=== PATIENT | female | born 1935 | race Caucasian/White ===

== ENCOUNTER → 2021-03-07 10:42 | Outpatient (CLI) | payer MEDICARE, OTHER, SELFPAY ==
[2021-03-07 11:08] LABS: Adenovirus,PCR Not Detected (NotDetected); Bordetella Pertussis Not Detected (NotDetected); Chlamydophila Pneumoniae, PCR Not Detected (NotDetected); Coronavirus 229E Not Detected (NotDetected); Coronavirus NL63 Not Detected (NotDetected); Coronavirus OC43 Not Detected (NotDetected); Coronovirus HKU1,PCR Not Detected (NotDetected); Human Metapneumovirus Not Detected (NotDetected); Influenza A, PCR Not Detected (NotDetected); Influenza AH1, 2009 Not Detected (NotDetected); Influenza AH1, PCR Not Detected (NotDetected); Influenza AH3,PCR Not Detected (NotDetected); Influenza B, PCR Not Detected (NotDetected); Mycoplasma Pneumoniae, PCR Not Detected (NotDetected); Parainfluenza 1, PCR Not Detected (NotDetected); Parainfluenza 2, PCR Not Detected (NotDetected); Parainfluenza 3, PCR Not Detected (NotDetected); Parainfluenza 4, PCR Not Detected (NotDetected); Respiratory Syncytial Virus Not Detected (NotDetected)
[2021-03-07 14:39] LABS: Rhinovirus/Enterovirus Detected (NotDetected)
== END ==
PROVIDERS: Visit Provider Nurse Practitioner Family
DX: Z20.822 Contact with and (suspected) exposure to COVID-19 (principal); J44.1 Chronic obstructive pulmonary disease with (acute) exacerbation; R05.9 Cough, unspecified; B34.1 Enterovirus infection, unspecified
CPT/HCPCS: 87486; 87581; 87632; 87798

== ENCOUNTER 2021-04-13 09:05 | Emergency (ER) | payer MEDICARE, OTHER, SELFPAY ==
[2021-04-13 09:54] LABS: UTC Influenza A Antigen Negative (Negative); UTC Strep Screen (Rapid) Positive (Negative)
[2021-04-13 09:55] LABS: UTC Influenza B Antigen Negative (Negative)
[2021-04-13 09:56] VITALS: BP 145/55; PULSE 96; RESP 18; TEMP 37; O2SAT 98; BMI 22.8
--- NOTE | 2021-04-13 10:10 | HMH.EDUTC ---
[facility] [place] Disposition Clinical Impression: Strep throat Disposition: Home, Self-Care Condition on Discharge: Good Instructions: DI for Strep Throat, Strep Throat Additional Instructions: *Monitor Temp, Over the counter Motrin or Tylenol as directed/as needed Tylenol every 4 hours and Motrin every 6 hours (as long as your family doctor has told you that you can take it) for fever or pain. and straight to ER if unable to lower temp less than 101.0 after medication given *Warm salt water gargles may help to soothe the throat *Throat Lozenges *Warm fluids like tea with honey may help to soothe the throat *Sleep elevated *Humidifier/Vaporizer *If you did not take Penicillin shot or was unable to, start taking antibiotic immediately and make sure that you take it for the FULL length of time although you should start to feel better in 24-48 hours *change toothbrush and toothpaste 24-48 hours after starting to take antibiotics so you do not reinfect yourself Monitor Temp. Tylenol and/or Ibuprofen as needed. ER if fever is no less than 101 despite alternating Tylenol and Ibuprofen * Encourage fluids, water, Gatorade, powerade, pedialyte if infant/toddler/or child *Cold fluids, popsicles and ice cream may feel good on his throat Follow up IMMEDIATELY for new or worsening symptoms or no Noticeable improvement over the next 48-72 hours. 911 for difficulty breathing or swallowing Prescriptions: Cefdinir [Omnicef 300mg Capsule] 300 mg PO BID #20 cap Prescription Printed Referrals: Kathi Almanza APRN [Primary Care Provider] - As needed Time of Disposition: 10:20 Medical Decision Making - Evan Inquiry Pt receiving controlled substance: No Evan was queried for this patient: No Vital Signs: 04/13/21 09:56 Temperature 98.6 F Temperature Source Oral Pulse Rate [Right Radial] 96 H Respiratory Rate 18 Blood Pressure [Right Arm] 145/55 H Blood Pressure Mean [Right Arm] 85 Blood Pressure Source [Right Arm] Automatic Cuff Blood Pressure Position [Right Arm] Sitting 02 Sat by Pulse Oximetry 98 Oxygen Delivery Method Room Air - Lab Data Lab results reviewed: Yes: I reviewed the patient's lab results. Lab Results 04/13/21 09:43: Influenza Type A Ag Negative, Influenza Type B Ag Negative 04/13/21 09:43: Strep Scn Rapid Clinic Positive A [facility] [place] HPI - General Stated complaint: sore throat, cough, h/a Time Seen by Provider: 04/13/21 10:10 Mode of Arrival: Ambulatory Source of Information: Patient Limitations: No Limitations Description of Symptoms (Recalled from Triage Doc. by RN): pt stated that she has cough, sore throat, body aches, and feels weak. HEENT Symptoms (Recalled from RN notes): No Resp Symptoms (Recalled from RN notes): No Skin Symptoms (Recalled from RN notes): No MS Symptoms (Recalled from RN notes): No Functional Status (Recalled from RN notes): n/a - History of Present Illness Provider Complaint: Patient states that she has been having sore throat, cough, feeling achy and headache States that she feels like she did when she had strep throat so she came back in to get checked - Related Data Previous Rx's Medication Instructions Recorded Cefdinir [Omnicef 300mg Capsule] 300 mg PO BID #20 cap 04/13/21 Allergies Allergy/AdvReac Type Severity Reaction Status Date / Time NKDA Allergy Unknown Uncoded 04/13/21 10:02 - Worker's Comp Is this a Worker's Comp case?: No Is this an H Worker's Comp?: No Is this a [place] Worker's Comp?: No [facility] History - Hepatitis A Screen Drug use history?: No High risk sexual behaviors?: No History of sexually transmitted infection?: No Currently employed?: No Childcare worker?: No Do you have indoor plumbing?: Yes Do you have electricity?: Yes Attestation statement:: This patient has been screened for Hepatitis A risk factors. I have reviewed the patient's past medical history: Yes - Social History Alcohol Intake: never Occupational S
--- NOTE | 2021-04-13 10:30 | PC.NURSE ---
Spoke with pt about OTC cough medications
[2021-04-13 10:31] VITALS: BP 145/55; PULSE 96; RESP 19; TEMP 37; O2SAT 98
== END 2021-04-13 10:31 | disposition home or self-care (01) ==
PROVIDERS: Emergency Provider Nurse Practitioner; PCP Nurse Practitioner Family
DX: J02.0 Streptococcal pharyngitis (principal)
CPT/HCPCS: G0463; 87804; 87880; 99202

== ENCOUNTER 2023-05-04 20:22 | Inpatient (IN) | payer MEDICARE, OTHER, SELFPAY ==
[2023-05-04] VITALS (10 sets, daily range): BP systolic 140–191; BP diastolic 52–87; PULSE 71–107; RESP 11–25; TEMP 37.3; O2SAT 87–97; BMI 25.4
--- NOTE | 2023-05-04 20:50 | XR_ITS ---
PROCEDURE INFORMATION: Exam: XR Chest Exam date and time: 05/04/2023 8:56 PM Age: 87 years old Clinical indication: Shortness of breath; Additional info: SOA TECHNIQUE: Imaging protocol: Radiologic exam of the chest. Views: 1 view. COMPARISON: No relevant prior studies available. FINDINGS: Lungs: Unremarkable. No consolidation. Pleural spaces: Unremarkable. No pleural effusion. No pneumothorax. Heart/Mediastinum: Unremarkable. No cardiomegaly. Bones/joints: Unremarkable. IMPRESSION: No acute findings.
[2023-05-04 20:53] LABS: Coronavirus 19, PCR Not Detected (NotDetected); Influenza B, PCR Not Detected (NotDetected)
[2023-05-04 20:56] LABS: Basophils # 0.1 K/mm3 (0-0.2); Basophils % 1.4 % (0.1-2.0); Eosinophils # 0.2 K/mm3 (0.0-0.4); Eosinophils % 1.8 % (0.1-12.0); Hematocrit 40.1 % (37.0-47.0); Hemoglobin 12.7 g/dL (12.2-16.2); Lymphocytes # 0.8 K/mm3 (0.7-4.5); Lymphocytes % 8.9 % (10-50); Mean Corpuscular HGB Conc 31.8 g/dL (31.8-35.4); Mean Corpuscular Hemoglobin 31.6 pg (27.0-31.2); Mean Corpuscular Volume 99.4 fl (81-99); Monocytes # 0.6 K/mm3 (0.1-1.0); Monocytes % 6.6 % (1.7-9.3); Neutrophils # 7.7 K/mm3 (1.8-7.8); Neutrophils % 81.4 % (37.0-80.0); Platelet Count 343 K/mm3 (142-424); Red Blood Count 4.03 M/mm3 (4.20-5.40); Red Cell Distribution Width 13.4 % (11.5-17.5); White Blood Count 9.5 K/mm3 (4.8-10.8)
[2023-05-04 20:58] LABS: Chloride 102 mmol/L (98-107); Potassium 3.7 mmoL/L (3.5-5.1); Sodium 138 mmol/L (136-145)
[2023-05-04 21:00] LABS: Blood Urea Nitrogen 23 mg/dl (7-17); Creatinine Clearance Estimated 30 mL/min (50-200); Estimated Glomerular Filt Rate 36 ml/min (>60); GFR (African American) 43 ML/MIN (>60)
--- NOTE | 2023-05-04 21:00 | ECG_ITS ---
APPROVED REPORT Exam: Resting ECG HR:98 bpm ECG Measurements Heart Rate 98 AXES MO 219 P 91 QRSd 94 QRS 38 QT 369 T 258 QTc 424 Conclusion SINUS RHYTHM WITH FIRST DEGREE AV BLOCK WITH OCCASIONAL SUPRAVENTRICULAR PREMATURE COMPLEXES LEFT VENTRICULAR HYPERTROPHY AND ST-T CHANGE [VOLTAGE CRITERIA PLUS ST/T ABNORMALITY] POSSIBLE SEPTAL MYOCARDIAL INFARCTION , PROBABLY OLD [30 ms Q WAVE IN V1/V2] ABNORMAL ECG UNCONFIRMED REPORT Electronically signed by : Roly Crews MD 05/05/2023 09:02:34
[2023-05-04 21:01] LABS: Alanine Aminotransferase 30 U/L (12-78); Albumin Level 4.2 g/dl (3.5-5.0); Albumin/Globulin Ratio 1.1 (1.1-1.8); Alkaline Phosphatase 76 U/L (38-126); Anion Gap 14.7 mEq/L (5-15); Aspartate Amino Transferase 42 U/L (14-36); Bilirubin,Total 0.5 mg/dl (0.2-1.3); Calcium 8.9 mg/dl (8.4-10.2); Carbon Dioxide 25 mmol/L (22.0-30.0); Globulin 3.9 g/dL (1.3-3.2); Glucose 129 mg/dl (74-100); Total Protein,Serum 8.1 g/dl (6.3-8.2)
[2023-05-04 21:02] LABS: Lactic Acid 2.7 mmol/L (0.7-2.1)
[2023-05-04 21:06] LABS: VBG HCO3 22.6 mmol/L (23-30); VBG Oxygen Saturation 80.9 % (50-70); VBG PCO2 36.6 mmol/L (35-51); VBG PH 7.41 mmol/L (7.31-7.41); VBG PO2 46.1 mmol/L (28-40); VBG Total CO2 23.8 mmol/L (23-27)
[2023-05-04 21:13] LABS: Troponin I 0.02 ng/ml (0.00-0.034)
[2023-05-04] MEDS: IPRATROPIUM/ALBUTEROL 3 ML NEB IH (21:13)
--- NOTE | 2023-05-04 21:13 | HMH.EDGENADL ---
Discharge Plan Disposition Patient Disposition: Home, Self-Care Chief Complaint: Shortness of Breath/Dyspnea Clinical Impressions Clinical Impression: Influenza A Respiratory failure with hypoxia Qualifiers: Chronicity: acute Qualified Code(s): J96.01 - Acute respiratory failure with hypoxia Discharge ED Provider: Angel Stanford General Adult HPI General Chief complaint: Shortness of Breath/Dyspnea Stated complaint: trouble breathing and cough Time Seen by Provider: 05/04/23 20:44 Mode of Arrival: Ambulatory Source of Information: Patient Limitations: No Limitations Description of Symptoms (Recalled from ER Triage Doc. by RN): 87 year old female with complaints of shortness of breath that has progressivly gotten worse over the last two nights with increased cough-non productive. Denies any fevers. No home oxygen use. History of Present Illness HPI narrative: 87-year-old female with reported history of borderline COPD presents with worsening cough and shortness of breath over the last couple of days. Son reports that she was very short of breath at home. He brought her in. On arrival her oxygen was in the 80s. She reports no fevers at home. Reports cough is productive of phlegm. She reports others have been sick around. She reports nasal congestion. Related Data Home Medications Medication Instructions Recorded Confirmed aspirin 81 mg tablet 81 mg PO DAILY 05/04/23 05/04/23 atenolol 25 mg tablet 25 mg PO DAILY 05/04/23 05/04/23 atorvastatin 10 mg tablet 10 mg PO DAILY 05/04/23 05/04/23 escitalopram oxalate 5 mg tablet 5 mg PO DAILY 05/04/23 05/04/23 lisinopril 10 mg tablet 10 mg PO BID 05/04/23 05/04/23 Allergies Allergy/AdvReac Type Severity Reaction Status Date / Time NKDA Allergy Unknown Uncoded 04/13/21 10:02 [facility] Disclaimer: The information contained in this section may have been updated after the patient was seen, as this information can be updated by other users. Social History Smoking Status: Former smoker alcohol intake: never current occupational status: retired Travel in the last 8 weeks: None ROS Obtained: Yes All systems reviewed & no additional complaints except as documented Physical Exam General General appearance: alert and in no apparent distress Head Head exam: atraumatic and normocephalic Eye Eye exam: Present normal appearance, PERRL and EOMI ENT ENT exam: Present normal oropharynx and normal external ear exam Neck Neck exam: Present normal inspection and full ROM Chest Chest inspection: Present normal inspection and symmetric chest wall rise; Absent tenderness Respiratory Respiratory exam: Present respiratory distress (Tachypnea and accessory muscle use noted) and wheezes Cardiovascular Cardiovascular exam: Present normal rhythm and tachycardia Abdominal Exam Abdominal exam: Present soft; Absent distention, tenderness or guarding Extremities Exam Extremities exam: Present normal inspection; Absent edema or joint swelling Back Exam Back exam: Present normal inspection; Absent tenderness Neurological Exam Neurological exam: Present alert and oriented X3; Absent motor sensory deficit Psychiatric Psychiatric exam: Present normal affect and normal mood Skin Skin exam: Present warm, dry and normal color Lymphatic Lymphatic Findings: no adenopathy Medical Decision Making Medical Records Medical records reviewed: Yes I reviewed the patient's medical records. Evan Inquiry Pt receiving controlled substance: No Evan was queried for this patient: No Vital Signs: 05/04/23 20:37 05/04/23 20:40 05/04/23 20:37 Temperature 99.1 F Temperature Source Oral Pulse Rate 93 H Pulse Rate [Left Radial] 107 H Respiratory Rate 22 13 Blood Pressure 151/87 H Blood Pressure [Right Arm] 191/80 H Blood Pressure Mean [Right Arm] 117 02 Sat by Pulse Oximetry 88 L 95 97 Oxygen Delivery Method Room Air Nasal Cannula Nasal Cannula Oxygen Flow Rate (LPM) 2 2 05/04/23 21:16 05/04/23 21:00 05/04/23 21:30 Temperature Temperature Source Pulse Rate 93 H 88 71 Pulse Rate [Left Radial] Respiratory Rate 15 11 L Blood Pressure 140/73 151/80 H Blood Pressure [Right Arm] Blood Pressure Mean [Right Arm] 02 Sat by Pulse Oximetry 96 95 Oxygen Delivery Method Room Air Room Air Oxygen Flow Rate (LPM) 05/04/23 22:00 05/04/23 23:22 05/04/23 23:22 Temperature Temperature Source Pulse Rate 97 H Pulse Rate [Left Radial] Respiratory Rate 13 Blood Pressure 154/52 H Blood Pressure [Right Arm] Blood Pressure Mean [Right Arm] 02 Sat by Pulse Oximetry 95 87 L 95 Oxygen Delivery Method Room Air Room Air Nasal Cannula Oxygen Flow Rate (LPM) 2 05/04/23 22:30 05/04/23 23:00 05/04/23 23:30 Temperature Temperature Source Pulse Rate 89 95 H Pulse Rate [Left Radial] Respiratory Rate 20 25 H 16 Blood Pressure 157/63 H 163/65 H 154/67 H Blood Pressure [Right Arm] Blood Pressure Mean [Right Arm] 02 Sat by Pulse Oximetry 93 L 94 L Oxygen Delivery Method Oxygen Flow Rate (LPM) Lab Data Lab results reviewed: Yes I reviewed the patient's lab results. Lab Results 05/04/23 20:35: SARS-CoV-2 (PCR) Not detected, Influenza A Untype (PCR) Detected A, Influenza Type B (PCR) Not detected 05/04/23 20:37: WBC 9.5, RBC 4.03 L, Hgb 12.7, Hct 40.1, MCV 99.4 H, MCH 31.6 H, MCHC 31.8, RDW 13.4, Plt Count 343, MPV 8.0, Neut % (Auto) 81.4 H, Lymph % (Auto) 8.9 L, [place] % (Auto) 6.6, Eos % (Auto) 1.8, Baso % (Auto) 1.4, Neut # (Auto) 7.7, Lymph # (Auto) 0.8, [place] # (Auto) 0.6, Eos # (Auto) 0.2, Baso # (Auto) 0.1, Sodium 138, Potassium 3.7, Chloride 102, Carbon Dioxide 25, Anion Gap 14.7, BUN 23 H, Creatinine 1.40 H, Estimated Creat Clear 30, Estimated GFR 36 L, Est GFR ( Amer) 43 L, Glucose 129 H, Lactate 2.7 H, Calcium 8.9, Total Bilirubin 0.5, AST 42 H, ALT 30, Alkaline Phosphatase 76, Troponin I 0.02, Total Protein 8.1, Albumin 4.2, Globulin 3.9 H, Albumin/Globulin Ratio 1.1 05/04/23 20:56: VBG pH 7.41, VBG pCO2 36.6, VBG pO2 46.1 H, VBG HCO3 22.6 L, VBG Total CO2 23.8, VBG O2 Saturation 80.9 H, VBG Base Excess -2.0 05/04/23 20:37 05/04/23 20:37 Orders (Tests/Meds): ED MEDICATIONS Generic Name Dose Route Start Last Admin Trade Name Freq PRN Reason Stop Dose Admin Acetaminophen 650 mg 05/04/23 23:20 Acetaminophen 325mg Tab PO 06/03/23 23:19 Q4HP PRN Fever or Mild Pain (1-3) Albuterol/Ipratropium 3 ml 05/05/23 00:00 Ipratropium/Albuterol 3 Ml [facility] 06/04/23 00:00 Q6RT ESTEBAN Enoxaparin Sodium 40 mg 05/05/23 09:00 Enoxaparin 40mg/0.4ml Syringe SQ 06/04/23 08:59 DAILY ESTEBAN Sodium Chloride 1,000 mls @ 50 mls/hr 05/04/23 23:30 Sod Chlor 0.9% 1000ml Bag IV 06/03/23 23:29 .Q20H ESTEBAN Morphine Sulfate 2 mg 05/04/23 23:20 Morphine 2mg/Ml Syringe IV 06/03/23 23:19 Q2HP PRN Severe Pain (7-10) Nicotine 21 mg 05/04/23 23:20 Nicotine 21mg/24hr Patch TD 06/03/23 23:19 DAILYP PRN Nicotine Cravings Ondansetron HCl 4 mg 05/04/23 23:20 Ondansetron 4mg/2ml Vial IV 06/03/23 23:19 Q8HP PRN Nausea Pantoprazole Sodium 40 mg 05/05/23 09:00 Pantoprazole 40mg Tablet PO 06/04/23 08:59 DAILY ESTEBAN Discontinued Medications Generic Name Dose Route Start Last Admin Trade Name Freq PRN Reason Stop Dose Admin Albuterol/Ipratropium 3 ml 05/04/23 20:48 05/04/23 21:13 Ipratropium/Albuterol 3 Ml [facility] 05/04/23 20:49 3 ml ONCE ONE Administration Oseltamivir Phosphate 75 mg 05/04/23 23:17 05/04/23 23:20 Oseltamivir 75mg Capsule PO 05/04/23 23:18 75 mg BID ONE Administration ORDERS Category Date Time Status Chest XR -- portable [XR chest portable] Stat Exams 05/04/23 20:50 Completed Complete Blood Count Auto Diff AMLAB Lab 05/05/23 06:00 Ordered Complete Blood Count Auto Diff Stat Lab 05/04/23 20:37 Completed Comprehensive Metabolic Panel AMLAB Lab 05/05/23 06:00 Ordered Comprehensive Metabolic Panel Stat Lab 05/04/23 20:37 Completed Lactic Acid Stat Lab 05/04/23 20:37 Completed Magnesium AMLAB Lab 05/05/23 06:00 Ordered Rapid PCR Covid and Flu A/B Stat Lab 05/04/23 20:35 Completed Troponin I Q3H Lab 05/04/23 23:50 Ordered Troponin I Q3H Lab 05/05/23 02:50 Ordered Troponin I Stat Lab 05/04/23 20:37 Completed VBG [Venous Blood Gas] Stat RT 05/04/23 20:56 Completed Medical Decision Narrative: 87-year-old female with history of borderline COPD presents with worsening shortness of breath, productive cough at home. History was obtained via conversation with patient, family. On arrival, patient is afebrile, tachycardic greater than 110, satting high 80s on room air., moving all extremities spontaneously. Full physical exam performed and significant for bilateral wheezing and increased work of breathing. Patient initially placed on 2 L nasal cannula with improvement in oxygenation. Differential includes but is not limited to COVID, flu, bacterial pneumonia, COPD exacerbation. Patient was given DuoNebs for symptomatic management and correction of underlying abnormalities. Workup initiated including CBC CMP troponin chest x-ray EKG and COVID flu swab.. Patient placed on manager cardiac cath. On re-evaluation, patient remains tachycardic on manager cardiac cath. Satting low 90s on room air after DuoNeb's. Laboratory workup independently interpreted by me and significant for elevated creatinine with at 1.4. Patient does not know what her baseline is and we do not have a known baseline. We called and found a creatinine of 0.9 from [facility] from 3 years ago. No significant leukocytosis, VBG nonactionable. Lactate elevated at 2.7. Initial troponin within normal limits. Influenza a positive on swabs. Imaging independently interpreted by me and significant for no focal opacity. See radiology read for full review of final results. EKG independently interpreted by me and significant for normal sinus rhythm, first-degree AV block noted, no significant ST changes, artifact throughout the EKG limits interpretation.. On reassessment, patient remains dyspneic and is given hypoxic, satting 87% on room air while at rest. Given patient history, exam and workup, patient's presentation most likely represents acute influenza infection with hypoxic respiratory failure and VADIM (baseline creatinine is unclear). interactive discussion had with patient/family who agreed to be admitted. Patient given oseltamivir. Interactive discussion was had with hospitalist on-call for admission. Procedures Risk/Benefits of Procedure(s) Were Explained: Yes Critical Care Critical Care Time Critical Care Time: No
[2023-05-04 21:16] LABS: Influenza A, PCR Detected (NotDetected)
[2023-05-04] MEDS: OSELTAMIVIR 75MG CAPSULE 75 MG PO (23:20)
--- NOTE | 2023-05-04 23:20 | PC.NURSE ---
on phone with hospitalist
--- NOTE | 2023-05-04 23:21 | PC.NURSE ---
notified house furnishings supervisor on admission
--- NOTE | 2023-05-04 23:22 | P.HP_ITS ---
History of Present Illness *Admission Date: 05/04/23 *Reason for visit:: SOB *History of present illness: This is a 87-year-old female with reported PMHx of borderline COPD , HTN, HLD, presented with worsening cough and shortness of breath over the last couple of days. Son reports that she was very short of breath at home. He brought her in. On arrival her oxygen was in the 80s. She reports no fevers at home. Reports cough is productive of phlegm. She reports others have been sick around. She reports nasal congestion. Admitted for treatment and management. [facility] Disclaimer: The information contained in this section may have been updated after the patient was seen, as this information can be updated by other users. Medical History (Updated 05/05/23 @ 06:38 by Zuhair Ac APRN) Asthma Depression Hyperlipidemia Hypertension Social History (Updated 05/05/23 @ 00:36 by Debi Shah RN) Smoking Status: Former smoker alcohol intake: never current occupational status: retired Travel in the last 8 weeks: None Review of Systems Review of Systems Review of systems:: pertinent systems reviewed and negative unless documented below Meds Home Medications and Allergies Home Medications Medication Instructions Recorded Confirmed Type atenolol 25 mg tablet 25 mg PO DAILY High Blood Pressure 05/04/23 05/05/23 History atorvastatin 10 mg tablet 10 mg PO DAILY Cholesterol 05/04/23 05/05/23 History escitalopram oxalate 5 mg tablet 5 mg PO DAILY Mood 05/04/23 05/05/23 History lisinopril 10 mg tablet 10 mg PO BID High Blood Pressure 05/04/23 05/05/23 History aspirin 81 mg tablet,delayed 81 mg PO DAILY Heart Health 05/05/23 05/05/23 History release New Prescriptions to Start Prescriptions: Allergies Allergy/AdvReac Type Severity Reaction Status Date / Time No Known Allergies Allergy Unverified 05/05/23 06:47 Exam Data for Last 24 hours Vital signs and Labs for Last 24 Hours: Temp Pulse Resp BP Pulse Ox O2 Del Method O2 Flow Rate 99.1 F 97 H 13 154/52 H 87 L Room Air 2 05/04/23 20:37 05/04/23 22:00 05/04/23 22:00 05/04/23 22:00 05/04/23 23:22 05/04/23 23:22 05/04/23 20:40 Laboratory Results - last 24 hr 05/04/23 20:35: SARS-CoV-2 (PCR) Not detected, Influenza A Untype (PCR) Detected A, Influenza Type B (PCR) Not detected 05/04/23 20:37: WBC 9.5, RBC 4.03 L, Hgb 12.7, Hct 40.1, MCV 99.4 H, MCH 31.6 H, MCHC 31.8, RDW 13.4, Plt Count 343, MPV 8.0, Neut % (Auto) 81.4 H, Lymph % (Auto) 8.9 L, [place] % (Auto) 6.6, Eos % (Auto) 1.8, Baso % (Auto) 1.4, Neut # (Auto) 7.7, Lymph # (Auto) 0.8, [place] # (Auto) 0.6, Eos # (Auto) 0.2, Baso # (Auto) 0.1, Sodium 138, Potassium 3.7, Chloride 102, Carbon Dioxide 25, Anion Gap 14.7, BUN 23 H, Creatinine 1.40 H, Estimated Creat Clear 30, Estimated GFR 36 L, Est GFR ( Amer) 43 L, Glucose 129 H, Lactate 2.7 H, Calcium 8.9, Total Bilirubin 0.5, AST 42 H, ALT 30, Alkaline Phosphatase 76, Troponin I 0.02, Total Protein 8.1, Albumin 4.2, Globulin 3.9 H, Albumin/Globulin Ratio 1.1 05/04/23 20:56: VBG pH 7.41, VBG pCO2 36.6, VBG pO2 46.1 H, VBG HCO3 22.6 L, VBG Total CO2 23.8, VBG O2 Saturation 80.9 H, VBG Base Excess -2.0 I & O for Last 24 hours: Intake & Output 05/01/23 05/02/23 05/03/23 05/04/23 23:59 23:59 23:59 23:59 Weight 65.317 kg Constitutional Constitutional: mild distress and cooperative *Routine HEENT Exam Head: Present normocephalic and atraumatic Eye: Present EOMI, PERRL and normal accommodation ENT: Present mucous membranes moist *Routine Neck Exam Neck: Present supple, full ROM and trachea midline *Routine Respiratory Exam Respiratory: Present decreased breath sounds, prolonged expiratory phase, wheezes, diminished air movement, able to speak in complete sentences and symmetric chest movement *Routine Cardiovascular Exam Cardiovascular: Present RRR, Normal S1, Normal S2 and tachycardia *Routine Abdominal Exam Abdominal: Present soft and normoactive bowel sounds; Absent organomegaly *Routine Rectal Exam Rectal:: deferred *Routine Genitalia Exam Genitalia:: deferred *Routine Extremities Exam Extremities: Present full ROM and pulses intact; Absent cyanosis, clubbing or edema *Routine Skin Exam Skin: Present intact, dry and warm *Routine Neurological Exam Neurological: Present alert, oriented X3, normal reflexes, moving all extremities and normal speech Routine Psychiatric Exam Psychiatric: Present normal thought process, cooperative and good judgment H&P: Result Imaging and Cardiology EKG: Status: image reviewed by me and Preliminary report Chest x-ray: Status: image reviewed by me, Preliminary report and final report Assessment and Plan *Assessment and plan (1) Respiratory failure with hypoxia: Status: Acute Qualifiers: Chronicity: acute Qualified Code(s): J96.01 - Acute respiratory failure with hypoxia Category: Medical Code(s): J96.91 - Respiratory failure, unspecified with hypoxia (2) Influenza A: Status: Acute Category: Medical Code(s): J10.1 - Influenza due to other identified influenza virus with other respiratory manifestations (3) Hypertension: Status: Acute Qualifiers: Hypertension type: unspecified Qualified Code(s): I10 - Essential (primary) hypertension Category: Medical Code(s): I10 - Essential (primary) hypertension (4) Hyperlipidemia: Status: Acute Qualifiers: Hyperlipidemia type: unspecified Qualified Code(s): E78.5 - Hyperlipidemia, unspecified Category: Medical Code(s): E78.5 - Hyperlipidemia, unspecified Plan 87-year-old female with reported PMHx of borderline COPD , HTN, HLD, presented with worsening cough and shortness of breath over the last couple of days. on arrival, patient presented hypoxic. In the high 80s. Was placed on oxygen. Underwent couple rounds of nebulized, with not complete resolution. Checks x- ray was done. Images reviewed. There is no focal opacity. Labs showed positive to influenza type A, elevated creatinine. The rest is unremarkable. The case with the ER provider for admission. Plan as follow: -Acute hypoxemia likely secondary to influenza A: Admit patient. Dispo MedSurg Monitor for O2 saturation. Currently on 3 L. Initially 6 L needed on arrival continue weaning off DuoNeb every 6h Started on Tamiflu Guaifenesin as needed for cough Monitor for sepsis and temperature per unit protocol Pulmonology consult. Patient does not have established diagnosis of COPD. History of asthma and former smoker. Might need pulmonary function test as an outpatient -Hypertension: Resume home meds lisinopril and atenolol -Hyperlipidemia on aspirin and statin Lovenox for DVT prophylaxis. Protonix for GI protection Full code Attending attestation Patient was seen and evaluated at the bedside myself, agree with IN FLIGHT TECHNICIAN note.
--- NOTE | 2023-05-04 23:22 | PC.NURSE ---
Acute admission to room 211 to service of the hospitalist with dx of flu A and hypoxia.
[2023-05-05] VITALS (10 sets, daily range): BP systolic 141–156; BP diastolic 70–79; PULSE 81–115; RESP 17–22; TEMP 36.7–37.3; O2SAT 91–100; BMI 26.3
--- NOTE | 2023-05-05 00:01 | PC.NURSE ---
Report given to LORETTA Carrera
[2023-05-05] MEDS: 0.9 % SODIUM CHLORIDE 1000ML 1,000 ML 50 ML IV (00:17)
--- NOTE | 2023-05-05 00:18 | PC.NURSE ---
Patient arrived to floor via wheelchair from ED at 00:15.
[2023-05-05 00:38] LABS: Troponin I 0.03 ng/ml (0.00-0.034)
[2023-05-05 00:52] LABS: Reflex Lactic Add Lactic Reflex
[2023-05-05 01:41] LABS: Lactic Acid Follow Up (RFLX 1) 1.9 mmol/L (0.7-2.1)
[2023-05-05 03:32] LABS: Troponin I 0.03 ng/ml (0.00-0.034)
--- NOTE | 2023-05-05 04:46 | PC.NURSE ---
Since arriving from the floor from the ER the patient has been able to rest. Patient came up on 2L NC but upon my assessment was extremely wheezy so RN called respiratory so she could have her midnight breathing treatment. After that we did end up bumping her O2 up to 3L NC where she remains and stating appropriately in the 90s. Patient has been up tot he bathroom with minimal assistance. No other issues noted
[2023-05-05] MEDS: IPRATROPIUM/ALBUTEROL 3 ML NEB IH ×4 (06:25→23:44)
[2023-05-05] MEDS: GUAIFENESIN/DEXTROMETHORPHAN 200MG/20MG 10ML UDC 10 ML PO (06:46)
[2023-05-05 07:28] LABS: Alanine Aminotransferase 32 U/L (12-78); Albumin/Globulin Ratio 1.1 (1.1-1.8); Alkaline Phosphatase 70 U/L (38-126); Anion Gap 8.7 mEq/L (5-15); Aspartate Amino Transferase 43 U/L (14-36); Bilirubin,Total 0.4 mg/dl (0.2-1.3); Blood Urea Nitrogen 19 mg/dl (7-17); Calcium 8.5 mg/dl (8.4-10.2); Carbon Dioxide 26 mmol/L (22.0-30.0); Chloride 103 mmol/L (98-107); Creatinine Clearance Estimated 34 mL/min (50-200); Estimated Glomerular Filt Rate 39 ml/min (>60); GFR (African American) 47 ML/MIN (>60); Globulin 3.5 g/dL (1.3-3.2); Glucose 134 mg/dl (74-100); Magnesium 1.6 mg/dl (1.6-2.3); Potassium 3.7 mmoL/L (3.5-5.1); Sodium 134 mmol/L (136-145); Total Protein,Serum 7.5 g/dl (6.3-8.2)
[2023-05-05 07:32] LABS: Basophils # 0.1 K/mm3 (0-0.2); Basophils % 0.8 % (0.1-2.0); Eosinophils % 0.2 % (0.1-12.0); Hematocrit 36.5 % (37.0-47.0); Hemoglobin 11.7 g/dL (12.2-16.2); Lymphocytes # 1.2 K/mm3 (0.7-4.5); Lymphocytes % 12.7 % (10-50); Mean Corpuscular Hemoglobin 32.1 pg (27.0-31.2); Mean Corpuscular Volume 100.1 fl (81-99); Mean Platelet Volume 7.8 fl (7.4-10.4); Monocytes # 0.5 K/mm3 (0.1-1.0); Monocytes % 5.6 % (1.7-9.3); Neutrophils # 7.3 K/mm3 (1.8-7.8); Neutrophils % 80.7 % (37.0-80.0); Platelet Count 298 K/mm3 (142-424); Red Blood Count 3.65 M/mm3 (4.20-5.40); Red Cell Distribution Width 13.2 % (11.5-17.5)
[2023-05-05] MEDS: PANTOPRAZOLE 40MG TABLET 40 MG PO (08:58)
[2023-05-05] MEDS: ASPIRIN EC 81MG TABLET 81 MG PO (08:58)
[2023-05-05] MEDS: ATENOLOL 25MG TABLET 25 MG PO (08:58)
[2023-05-05] MEDS: LISINOPRIL 10MG TABLET 10 MG PO ×2 (08:58→21:14)
[2023-05-05] MEDS: CITALOPRAM 10MG TABLET 10 MG PO (08:58)
[2023-05-05] MEDS: ATORVASTATIN 10MG TABLET 10 MG PO (08:58)
[2023-05-05] MEDS: OSELTAMIVIR PHOSPHATE 6MG/ML ORAL SUSP 60ML 30 MG PO ×2 (09:01→21:14)
--- NOTE | 2023-05-05 10:47 | HMH.PHAINT1 ---
Pharmacy Intervention Comments: MEDICATION RECONCILIATION COMPLETED ON PATIENT VIA PATIENT INTERVIEW. -REINA MARTINEZ, WANDAD
--- NOTE | 2023-05-05 16:23 | EXP.PN ---
Subjective *Date: 05/05/23 *Time: 16:23 Interval history: patient was seen and evaluated at the bedside. complains of SOB, No reported acute events overnight, denies chest pain, nausea, vomiting, abdominal pain. Exam Data for Last 24 hours Vital signs and Labs for Last 24 Hours: Temp Pulse Resp BP Pulse Ox O2 Del Method O2 Flow Rate 99.0 F 93 H 17 141/79 H 98 Nasal Cannula 2 05/05/23 15:45 05/05/23 15:45 05/05/23 15:45 05/05/23 15:45 05/05/23 15:45 05/05/23 15:45 05/05/23 15:45 Laboratory Results - last 24 hr 05/04/23 20:35: SARS-CoV-2 (PCR) Not detected, Influenza A Untype (PCR) Detected A, Influenza Type B (PCR) Not detected 05/04/23 20:37: WBC 9.5, RBC 4.03 L, Hgb 12.7, Hct 40.1, MCV 99.4 H, MCH 31.6 H, MCHC 31.8, RDW 13.4, Plt Count 343, MPV 8.0, Neut % (Auto) 81.4 H, Lymph % (Auto) 8.9 L, [place] % (Auto) 6.6, Eos % (Auto) 1.8, Baso % (Auto) 1.4, Neut # (Auto) 7.7, Lymph # (Auto) 0.8, [place] # (Auto) 0.6, Eos # (Auto) 0.2, Baso # (Auto) 0.1, Sodium 138, Potassium 3.7, Chloride 102, Carbon Dioxide 25, Anion Gap 14.7, BUN 23 H, Creatinine 1.40 H, Estimated Creat Clear 30, Estimated GFR 36 L, Est GFR ( Amer) 43 L, Glucose 129 H, Lactate 2.7 H, Calcium 8.9, Total Bilirubin 0.5, AST 42 H, ALT 30, Alkaline Phosphatase 76, Troponin I 0.02, Total Protein 8.1, Albumin 4.2, Globulin 3.9 H, Albumin/Globulin Ratio 1.1 05/04/23 20:56: VBG pH 7.41, VBG pCO2 36.6, VBG pO2 46.1 H, VBG HCO3 22.6 L, VBG Total CO2 23.8, VBG O2 Saturation 80.9 H, VBG Base Excess -2.0 05/04/23 23:57: Troponin I 0.03 05/05/23 01:25: Lactate 1.9 05/05/23 03:00: Troponin I 0.03 05/05/23 06:46: WBC 9.0, RBC 3.65 L, Hgb 11.7 L, Hct 36.5 L, MCV 100.1 H, MCH 32.1 H, MCHC 32.0, RDW 13.2, Plt Count 298, MPV 7.8, Neut % (Auto) 80.7 H, Lymph % (Auto) 12.7, [place] % (Auto) 5.6, Eos % (Auto) 0.2, Baso % (Auto) 0.8, Neut # (Auto) 7.3, Lymph # (Auto) 1.2, [place] # (Auto) 0.5, Eos # (Auto) 0.0, Baso # (Auto) 0.1, Sodium 134 L, Potassium 3.7, Chloride 103, Carbon Dioxide 26, Anion Gap 8.7, BUN 19 H, Creatinine 1.30 H, Estimated Creat Clear 34, Estimated GFR 39 L, Est GFR ( Amer) 47 L, Glucose 134 H, Calcium 8.5, Magnesium 1.6, Total Bilirubin 0.4, AST 43 H, ALT 32, Alkaline Phosphatase 70, Total Protein 7.5, Albumin 4.0, Globulin 3.5 H, Albumin/Globulin Ratio 1.1 I & O for Last 24 hours: Intake & Output 05/02/23 05/03/23 05/04/23 05/05/23 23:59 23:59 23:59 23:59 Intake Total 480 / 480 Output Total 0 / 0 Balance 480 / 480 Weight 65.317 kg 67.358 kg Constitutional Constitutional: no acute distress *Routine HEENT Exam Head: Present normocephalic Eye: Present EOMI and PERRL ENT: Present mucous membranes moist *Routine Neck Exam Neck: Present supple; Absent lymphadenopathy *Routine Respiratory Exam Respiratory: Present wheezes *Routine Cardiovascular Exam Cardiovascular: Present RRR *Routine Abdominal Exam Abdominal: Present soft and normoactive bowel sounds; Absent tenderness *Routine Extremities Exam Extremities: Absent cyanosis, clubbing or edema *Routine Skin Exam Skin: Present warm; Absent rash *Routine Neurological Exam Neurological: Present alert and oriented X3 Assessment and Plan *Assessment and plan (1) Respiratory failure with hypoxia: Status: Acute Qualifiers: Chronicity: acute Qualified Code(s): J96.01 - Acute respiratory failure with hypoxia Category: Medical Code(s): J96.91 - Respiratory failure, unspecified with hypoxia (2) Influenza A: Status: Acute Category: Medical Code(s): J10.1 - Influenza due to other identified influenza virus with other respiratory manifestations (3) Hypertension: Status: Acute Qualifiers: Hypertension type: unspecified Qualified Code(s): I10 - Essential (primary) hypertension Category: Medical Code(s): I10 - Essential (primary) hypertension (4) Hyperlipidemia: Status: Acute Qualifiers: Hyperlipidemia type: unspecified Qualified Code(s): E78.5 - Hyperlipidemia, unspecified Category: Medical Code(s): E78.5 - Hyperlipidemia, unspecified Plan 87-year-old female with reported PMHx of borderline COPD , HTN, HLD, presented with worsening cough and shortness of breath over the last couple of days. on arrival, patient presented hypoxic. In the high 80s. Was placed on oxygen. Underwent couple rounds of nebulized, with not complete resolution. Checks x-ray was done. Images reviewed. There is no focal opacity. Labs showed positive to influenza type A, elevated creatinine. The rest is unremarkable. The case with the ER provider for admission. Plan as follow: -Acute hypoxemia likely secondary to influenza A: Monitor for O2 saturation. Currently on 3 L. Initially 6 L needed on arrival continue weaning off DuoNeb every 6h Started on Tamiflu Guaifenesin as needed for cough Monitor for sepsis and temperature per unit protocol Pulmonology consult. Patient does not have established diagnosis of COPD. History of asthma and former smoker. Might need pulmonary function test as an outpatient -Hypertension: Resume home meds lisinopril and atenolol -Hyperlipidemia on aspirin and statin Lovenox for DVT prophylaxis. Protonix for GI protection Full code continue - current regimen
[2023-05-06 04:00] VITALS: BP 119/61; PULSE 95; RESP 16; TEMP 36.7; O2SAT 96; BMI 26.3
--- NOTE | 2023-05-06 05:18 | PC.NURSE ---
Pt A&Ox4. Pt ambulates to the restroom with standby assist. Pt is on 1L NC O2 >90%. Pt rested very well through the night with no complaints. Lung sounds expiratory wheezing bilaterally. Call light in reach.
[2023-05-06] MEDS: IPRATROPIUM/ALBUTEROL 3 ML NEB IH (06:10)
[2023-05-06 06:59] LABS: Basophils % 0.4 % (0.1-2.0); Eosinophils % 0.1 % (0.1-12.0); Hematocrit 34.4 % (37.0-47.0); Lymphocytes # 1.1 K/mm3 (0.7-4.5); Lymphocytes % 21.5 % (10-50); Mean Corpuscular Hemoglobin 31.6 pg (27.0-31.2); Mean Corpuscular Volume 98.7 fl (81-99); Mean Platelet Volume 8.1 fl (7.4-10.4); Monocytes # 0.4 K/mm3 (0.1-1.0); Monocytes % 7.7 % (1.7-9.3); Neutrophils # 3.7 K/mm3 (1.8-7.8); Neutrophils % 70.4 % (37.0-80.0); Platelet Count 240 K/mm3 (142-424); Red Blood Count 3.49 M/mm3 (4.20-5.40); Red Cell Distribution Width 13.4 % (11.5-17.5); White Blood Count 5.2 K/mm3 (4.8-10.8)
[2023-05-06 07:06] LABS: Alanine Aminotransferase 21 U/L (12-78); Alkaline Phosphatase 54 U/L (38-126); Anion Gap 5.5 mEq/L (5-15); Aspartate Amino Transferase 41 U/L (14-36); Bilirubin,Total 0.3 mg/dl (0.2-1.3); Blood Urea Nitrogen 22 mg/dl (7-17); Calcium 7.7 mg/dl (8.4-10.2); Carbon Dioxide 25 mmol/L (22.0-30.0); Chloride 105 mmol/L (98-107); Creatinine Clearance Estimated 31 mL/min (50-200); Estimated Glomerular Filt Rate 36 ml/min (>60); GFR (African American) 43 ML/MIN (>60); Globulin 3.1 g/dL (1.3-3.2); Glucose 88 mg/dl (74-100); Potassium 3.5 mmoL/L (3.5-5.1); Sodium 132 mmol/L (136-145); Total Protein,Serum 6.1 g/dl (6.3-8.2)
[2023-05-06 08:00] VITALS: BP 111/57; PULSE 90; RESP 18; TEMP 36.6; O2SAT 93
[2023-05-06] MEDS: PANTOPRAZOLE 40MG TABLET 40 MG PO (08:20)
[2023-05-06] MEDS: ATENOLOL 25MG TABLET 25 MG PO (08:20)
[2023-05-06] MEDS: LISINOPRIL 10MG TABLET 10 MG PO (08:20)
[2023-05-06] MEDS: CITALOPRAM 10MG TABLET 10 MG PO (08:20)
[2023-05-06] MEDS: ATORVASTATIN 10MG TABLET 10 MG PO (08:20)
[2023-05-06] MEDS: ENOXAPARIN 40MG/0.4ML SYRINGE 40 MG SQ (08:20)
[2023-05-06] MEDS: ASPIRIN EC 81MG TABLET 81 MG PO (08:20)
[2023-05-06] MEDS: OSELTAMIVIR PHOSPHATE 6MG/ML ORAL SUSP 60ML 30 MG PO (08:24)
--- NOTE | 2023-05-06 09:48 | EXP.PULM.CON ---
History of Present Illness History of present illness: Ms. Yoon is a 87-year-old female with reported history greater than 30 PPD, last smoked around 2019 does not carry any specific diagnosis of COPD at baseline, using albuterol inhaler on as-needed basis, presented to the ER with worsening cough and shortness of breath and found to be hypoxic on arrival to the ER and pulmonary was called for further evaluation and management. [facility] Disclaimer: The information contained in this section may have been updated after the patient was seen, as this information can be updated by other users. Medical History (Updated 05/06/23 @ 11:28 by Kerline Zeng MD) Asthma Depression Hyperlipidemia Hypertension Pneumonia Social History (Updated 05/05/23 @ 00:36 by Debi Shah RN) Smoking Status: Former smoker alcohol intake: never current occupational status: retired Travel in the last 8 weeks: None Review of Systems Constitutional Constitutional: Reports anorexia, Reports body ache(s) and Reports fatigue Eyes Eyes: Denies eye discharge, Denies dry eyes, Denies irritation and Denies itchy eyes ENT Ears, Nose, Mouth, and Throat: Denies epistaxis, Denies facial pain, Denies lip swelling and Denies throat swelling *Cardiovascular Cardiovascular: Reports dyspnea and Reports dyspnea on exertion *Respiratory Respiratory: Denies change in phlegm color, Reports chest congestion, Reports cough, Reports dyspnea, Reports dyspnea on exertion, Reports excessive phlegm production and Reports wheezing *Gastrointestinal Gastrointestinal: Denies abdominal pain, Denies belching and Denies cramping *Musculoskeletal Musculoskeletal: Reports back pain, Reports myalgias and Reports other (No small joint swelling or Pain) Psychiatric Psychiatric: Denies homicidal ideation and Denies suicidal ideation Endocrine Endocrine: Reports fatigue and Denies heat intolerance Hematologic/Lymphatic Hematologic/Lymphatic: Denies easy bleeding and Denies lymphadenopathy Allergic/Immunologic Allergic/Immunologic: Denies itchy eyes, Denies lip swelling, Denies throat swelling and Reports wheezing Pulmonology Exam Inpatient Vital signs and Labs for Last 24 Hours: Temp Pulse Resp BP Pulse Ox O2 Del Method O2 Flow Rate 97.8 F 90 18 111/57 L 93 L Nasal Cannula 1 05/06/23 08:00 05/06/23 08:00 05/06/23 08:00 05/06/23 08:00 05/06/23 08:00 05/06/23 08:00 05/06/23 08:00 Laboratory Results - last 24 hr 05/06/23 06:23: WBC 5.2 D, RBC 3.49 L, Hgb 11.0 L, Hct 34.4 L, MCV 98.7, MCH 31.6 H, MCHC 32.0, RDW 13.4, Plt Count 240, MPV 8.1, Neut % (Auto) 70.4, Lymph % (Auto) 21.5, [place] % (Auto) 7.7, Eos % (Auto) 0.1, Baso % (Auto) 0.4, Neut # (Auto) 3.7, Lymph # (Auto) 1.1, [place] # (Auto) 0.4, Eos # (Auto) 0.0, Baso # (Auto) 0.0, Sodium 132 L, Potassium 3.5, Chloride 105, Carbon Dioxide 25, Anion Gap 5.5, BUN 22 H, Creatinine 1.40 H, Estimated Creat Clear 31, Estimated GFR 36 L, Est GFR ( Amer) 43 L, Glucose 88 D, Calcium 7.7 L, Total Bilirubin 0.3, AST 41 H, ALT 21 D, Alkaline Phosphatase 54, Total Protein 6.1 L, Albumin 3.0 L D, Globulin 3.1, Albumin/Globulin Ratio 1.0 L I & O for Labs for Last 24 Hours: Intake & Output 05/03/23 05/04/23 05/05/23 05/06/23 23:59 23:59 23:59 23:59 Intake Total 720 / 720 596 / 596 Output Total 0 / 0 0 / 0 Balance 720 / 720 596 / 596 Weight 144 lb 148 lb 7.983 oz 148 lb 7.983 oz Constitutional: Present mild distress Head: Present normocephalic and atraumatic ENT: Present normal exam, normal oropharynx and mucous membranes moist Neck: Present normal inspection and full ROM Respiratory: Present respiratory distress, wheezes, diminished air movement and able to speak in complete sentences Cardiac: Present S1/S2, Tachycardia and radial pulses present GI: Present soft and distention; Absent tenderness or guarding Rectal (female): Present deferred (female): Present deferred Skin: Present intact; Absent cyanosis or jaundice Neuro: Present alert, awake and oriented x 3 Extremities: Present normal inspection; Absent clubbing or cyanosis Psychiatric: Present normal affect and cooperative Meds Home Medications and Allergies Home Medications Medication Instructions Recorded Confirmed Type atenolol 25 mg tablet 25 mg PO DAILY High Blood Pressure 05/04/23 05/05/23 History atorvastatin 10 mg tablet 10 mg PO DAILY Cholesterol 05/04/23 05/05/23 History escitalopram oxalate 5 mg tablet 5 mg PO DAILY Mood 05/04/23 05/05/23 History lisinopril 10 mg tablet 10 mg PO BID High Blood Pressure 05/04/23 05/05/23 History aspirin 81 mg tablet,delayed 81 mg PO DAILY Heart Health 05/05/23 05/05/23 History release dextromethorphan-guaifenesin 10 10 ml PO Q4HP PRN Cough 14 days 05/06/23 Rx mg-100 mg/5 mL oral syrup #120 mL nicotine 21 mg/24 hr daily 21 mg transdermal DAILYP PRN 05/06/23 Rx transdermal patch Nicotine Cravings 14 days #14 ea oseltamivir 6 mg/mL oral 30 mg (5 mL) PO BID 5 days #50 mL 05/06/23 Rx suspension (Tamiflu) New Prescriptions to Start Prescriptions: dextromethorphan-guaifenesin Poli Aguilar nicotine Jeff,Poli oseltamivir [Tamiflu] Poli Aguilar Allergies Allergy/AdvReac Type Severity Reaction Status Date / Time No Known Allergies Allergy Unverified 05/05/23 06:47 Results Laboratory Findings 05/06/23 06:23 05/06/23 06:23 Abnormal lab findings: Abnormal Labs 05/04/23 05/04/23 05/04/23 20:35 20:37 20:56 RBC 4.03 L Hgb Hct MCV 99.4 H MCH 31.6 H Neut % (Auto) 81.4 H Lymph % (Auto) 8.9 L VBG pO2 46.1 H VBG HCO3 22.6 L VBG O2 Saturation 80.9 H Sodium BUN 23 H Creatinine 1.40 H Estimated GFR 36 L Est GFR ( Amer) 43 L Glucose 129 H Lactate 2.7 H Calcium AST 42 H Total Protein Albumin Globulin 3.9 H Albumin/Globulin Ratio Influenza A Untype (PCR) Detected A 05/05/23 05/06/23 06:46 06:23 RBC 3.65 L 3.49 L Hgb 11.7 L 11.0 L Hct 36.5 L 34.4 L MCV 100.1 H MCH 32.1 H 31.6 H Neut % (Auto) 80.7 H Lymph % (Auto) VBG pO2 VBG HCO3 VBG O2 Saturation Sodium 134 L 132 L BUN 19 H 22 H Creatinine 1.30 H 1.40 H Estimated GFR 39 L 36 L Est GFR ( Amer) 47 L 43 L Glucose 134 H Lactate Calcium 7.7 L AST 43 H 41 H Total Protein 6.1 L Albumin 3.0 L D Globulin 3.5 H Albumin/Globulin Ratio 1.0 L Influenza A Untype (PCR) Assessment and Plan *Assessment and plan (1) Influenza A: Status: Acute Category: Medical Code(s): J10.1 - Influenza due to other identified influenza virus with other respiratory manifestations (2) Respiratory failure with hypoxia: Status: Acute Qualifiers: Chronicity: acute Qualified Code(s): J96.01 - Acute respiratory failure with hypoxia Category: Medical Code(s): J96.91 - Respiratory failure, unspecified with hypoxia (3) Pneumonia: Status: Acute Category: Medical Code(s): J18.9 - Pneumonia, unspecified organism Plan Ms. Yoon is a 87-year-old female with reported history greater than 30 PPD, last smoked around 2019 does not carry any specific diagnosis of COPD at baseline, using albuterol inhaler on as-needed basis, presented to the ER with worsening cough and shortness of breath and found to be hypoxic on arrival to the ER and pulmonary was called for further evaluation and management. Afebrile. No evidence of leukocytosis upon admission. VADIM noted. Venous blood gas upon admission did not show any evidence of hypoxic/hypercarbic respiratory failure. COVID-19 negative, influenza A PCR resulted positive. Chest x-ray upon admission no acute findings, no dense consolidation noted. Evidence of bronchitis noted. Patient upon admission was initiated on DuoNebs every 6 hours scheduled along with Tamiflu.. Expiratory wheezing. On room air saturating 93%. Appears to be in mild respiratory distress. Plan: Initiate Advair 250 inhaler 2 puffs twice daily Continue albuterol/duo nebs every 6 hours on as-needed basis upon diacharge Continue Tamiflu for a total of 5 days Recommend to initiate Augmentin for community acquired pneumonia to complete a total of 5-day course. # Thank you for involving pulmonary in this patient care. Will follow the patient in pulmonary clinic in 2 weeks.
--- NOTE | 2023-05-06 10:20 | P.DS_ITS ---
General Admission date:: 05/05/23 Discharge date: 05/06/23 HPI HPI HPI: This is a 87-year-old female with reported PMHx of borderline COPD , HTN, HLD, presented with worsening cough and shortness of breath over the last couple of days. Son reports that she was very short of breath at home. He brought her in. On arrival her oxygen was in the 80s. She reports no fevers at home. Reports cough is productive of phlegm. She reports others have been sick around. She reports nasal congestion. Admitted for treatment and management. Hospital Course Hospital Course Hospital Course: Patient was seen and evaluated at the bedside on the day of discharge. Patient is stable for discharge. Patient wishes to be discharged. All patient questions were answered and patient was given time to ask questions. Patient was discharged in stable condition. Patient understands that she can return to ER in case of any sudden changes in health. Total time spent on DC - 38 mins 87-year-old female with reported PMHx of borderline COPD , HTN, HLD, presented with worsening cough and shortness of breath over the last couple of days. on arrival, patient presented hypoxic. In the high 80s. Was placed on oxygen. Underwent couple rounds of nebulized, with not complete resolution. Checks x- ray was done. Images reviewed. There is no focal opacity. Labs showed positive to influenza type A, elevated creatinine. The rest is unremarkable. The case with the ER provider for admission. Plan as follow: -Acute hypoxemia likely secondary to influenza A: - improved, home o2 eval -Hypertension: Resume home meds lisinopril and atenolol -Hyperlipidemia on aspirin and statin Lovenox for DVT prophylaxis. Protonix for GI protection Full code Exam Data for Last 24 hours Vital signs and Labs for Last 24 Hours: Temp Pulse Resp BP Pulse Ox O2 Del Method O2 Flow Rate 97.8 F 90 18 111/57 L 93 L Nasal Cannula 1 05/06/23 08:00 05/06/23 08:00 05/06/23 08:00 05/06/23 08:00 05/06/23 08:00 05/06/23 08:00 05/06/23 08:00 Laboratory Results - last 24 hr 05/06/23 06:23: WBC 5.2 D, RBC 3.49 L, Hgb 11.0 L, Hct 34.4 L, MCV 98.7, MCH 31.6 H, MCHC 32.0, RDW 13.4, Plt Count 240, MPV 8.1, Neut % (Auto) 70.4, Lymph % (Auto) 21.5, [place] % (Auto) 7.7, Eos % (Auto) 0.1, Baso % (Auto) 0.4, Neut # (Auto) 3.7, Lymph # (Auto) 1.1, [place] # (Auto) 0.4, Eos # (Auto) 0.0, Baso # (Auto) 0.0, Sodium 132 L, Potassium 3.5, Chloride 105, Carbon Dioxide 25, Anion Gap 5.5, BUN 22 H, Creatinine 1.40 H, Estimated Creat Clear 31, Estimated GFR 36 L, Est GFR ( Amer) 43 L, Glucose 88 D, Calcium 7.7 L, Total Bilirubin 0.3, AST 41 H, ALT 21 D, Alkaline Phosphatase 54, Total Protein 6.1 L, Albumin 3.0 L D, Globulin 3.1, Albumin/Globulin Ratio 1.0 L I & O for Last 24 hours: Intake & Output 05/03/23 05/04/23 05/05/23 05/06/23 23:59 23:59 23:59 23:59 Intake Total 720 / 720 596 / 596 Output Total 0 / 0 0 / 0 Balance 720 / 720 596 / 596 Weight 65.317 kg 67.358 kg 67.358 kg Constitutional Constitutional: no acute distress *Routine HEENT Exam Head: Present normocephalic Eye: Present EOMI and PERRL ENT: Present mucous membranes moist *Routine Neck Exam Neck: Present supple; Absent lymphadenopathy *Routine Respiratory Exam Respiratory: Present CTA bilaterally *Routine Cardiovascular Exam Cardiovascular: Present RRR *Routine Abdominal Exam Abdominal: Present soft and normoactive bowel sounds; Absent tenderness *Routine Extremities Exam Extremities: Absent cyanosis, clubbing or edema *Routine Skin Exam Skin: Present warm; Absent rash *Routine Neurological Exam Neurological: Present alert and oriented X3 Results Data Completed and Pending Labs on day of discharge: Labs from last 24 hours 05/06/23 06:23 WBC 5.2 D RBC 3.49 L Hgb 11.0 L Hct 34.4 L MCV 98.7 MCH 31.6 H MCHC 32.0 RDW 13.4 Plt Count 240 MPV 8.1 Neut % (Auto) 70.4 Lymph % (Auto) 21.5 [place] % (Auto) 7.7 Eos % (Auto) 0.1 Baso % (Auto) 0.4 Neut # (Auto) 3.7 Lymph # (Auto) 1.1 [place] # (Auto) 0.4 Eos # (Auto) 0.0 Baso # (Auto) 0.0 Sodium 132 L Potassium 3.5 Chloride 105 Carbon Dioxide 25 Anion Gap 5.5 BUN 22 H Creatinine 1.40 H Estimated Creat Clear 31 Estimated GFR 36 L Est GFR ( Amer) 43 L Glucose 88 D Calcium 7.7 L Total Bilirubin 0.3 AST 41 H ALT 21 D Alkaline Phosphatase 54 Total Protein 6.1 L Albumin 3.0 L D Globulin 3.1 Albumin/Globulin Ratio 1.0 L DS: Diagnosis Discharge Diagnosis (1) Respiratory failure with hypoxia: Status: Acute Code(s): J96.91 - Respiratory failure, unspecified with hypoxia Qualifiers: Chronicity: acute Qualified Code(s): J96.01 - Acute respiratory failure with hypoxia (2) Influenza A: Status: Acute Code(s): J10.1 - Influenza due to other identified influenza virus with other respiratory manifestations (3) Hypertension: Status: Acute Code(s): I10 - Essential (primary) hypertension Qualifiers: Hypertension type: unspecified Qualified Code(s): I10 - Essential (primary) hypertension (4) Hyperlipidemia: Status: Acute Code(s): E78.5 - Hyperlipidemia, unspecified Qualifiers: Hyperlipidemia type: unspecified Qualified Code(s): E78.5 - Hyperlipidemia, unspecified Meds Home Medications and Allergies Home Medications Medication Instructions Recorded Confirmed Type atenolol 25 mg tablet 25 mg PO DAILY High Blood Pressure 05/04/23 05/05/23 History atorvastatin 10 mg tablet 10 mg PO DAILY Cholesterol 05/04/23 05/05/23 History escitalopram oxalate 5 mg tablet 5 mg PO DAILY Mood 05/04/23 05/05/23 History lisinopril 10 mg tablet 10 mg PO BID High Blood Pressure 05/04/23 05/05/23 Hist ory aspirin 81 mg tablet,delayed 81 mg PO DAILY Heart Health 05/05/23 05/05/23 History release dextromethorphan-guaifenesin 10 10 ml PO Q4HP PRN Cough 14 days 05/06/23 Rx mg-100 mg/5 mL oral syrup #120 mL nicotine 21 mg/24 hr daily 21 mg transdermal DAILYP PRN 05/06/23 Rx transdermal patch Nicotine Cravings 14 days #14 ea oseltamivir 6 mg/mL oral 30 mg (5 mL) PO BID 5 days #50 mL 05/06/23 Rx suspension (Tamiflu) New Prescriptions to Start Prescriptions: dextromethorphan-guaifenesin Poli Aguilar nicotine Jeff,Poli oseltamivir [Tamiflu] Poli Aguilar Allergies Allergy/AdvReac Type Severity Reaction Status Date / Time No Known Allergies Allergy Unverified 05/05/23 06:47 Discharge Plan Disposition Patient Disposition: Home, Self-Care Condition: Good Discharge Order Discharge Orders: Discharge Order (Routine); Ordered 05/06/23 Ordered By: Poli Aguilar Follow up Plan Follow up with: Provider,Referral, [Primary Care Provider] - Enter time for follow up Kerline Zeng MD [Physician] - 2 weeks Prescriptions/Medication Reconciliation: New dextromethorphan-guaifenesin 10-100 mg/5 mL Syrup 10 ml PO Q4HP PRN (Reason: Cough) 14 Days Qty: 120 0RF nicotine 21 mg/24 hr Patch 24 Hour 21 mg transdermal DAILYP PRN (Reason: Nicotine Cravings) 14 Days Qty: 14 0RF oseltamivir [Tamiflu] 6 mg/mL Suspension For Reconstitution 30 mg PO BID 5 Days Qty: 50 0RF Continued atorvastatin 10 mg Tablet 10 mg PO DAILY atenolol 25 mg Tablet 25 mg PO DAILY lisinopril 10 mg Tablet 10 mg PO BID escitalopram oxalate 5 mg Tablet 5 mg PO DAILY aspirin 81 mg Tablet,Delayed Release (Dr/Ec) 81 mg PO DAILY Problem Reconciliation Problems Reviewed?: Yes Patient Discharge Instructions ACTIVITY: Ambulate as tolerated DIET: advance to your usual diet Patient Instructions: DI for Influenza -- Adult, DI for Shortness of Breath, DI for Respiratory Failure, DI for Hypoxia Providers Primary Care Provider: Provider,Referral Admit Provider: Zuhair Ac Attending Provider: Poli Aguilar
== END 2023-05-06 11:58 | disposition home or self-care (01) | DRG 193 ==
LOC: ER 20:37 → 2ND 23:35
PROVIDERS: Admitting Provider Nurse Practitioner Family; Emergency Provider Emergency Medicine; Visit Provider Internal Medicine
DX: J10.1 Influenza due to other identified influenza virus with other respiratory manifestations (principal); J96.01 Acute respiratory failure with hypoxia; N17.9 Acute kidney failure, unspecified; Z87.891 Personal history of nicotine dependence; I10 Essential (primary) hypertension; F32.A Depression, unspecified
CPT/HCPCS: 36415; 71045; 80053; 82803; 83605; 83735; 84484; 85025; 87636; 93005; 94640; 94760; 99285